=== PATIENT | female | born 1955 | race Caucasian/White ===

== ENCOUNTER → 2024-09-17 10:06 | Outpatient (REF) | payer MEDICARE, OTHER, SELFPAY | LOC: HWRAD 10:06 | PROVIDERS: ATTENDING PHYSICIAN Family Medicine | DX: Z85.850 Personal history of malignant neoplasm of thyroid (principal); E89.0 Postprocedural hypothyroidism | CPT/HCPCS: 76536 ==

== ENCOUNTER 2025-01-27 12:18 | Emergency (ER) | payer MEDICARE, OTHER, SELFPAY ==
[2025-01-27 12:30] VITALS: BP 143/88
[2025-01-27 13:00] LABS: % Basophils 0.5 % (0-2); % Eosinophils 0.4 % (0-6); % Immature Granulocytes 0.1 % (0-0.5); % Lymphocytes 40.2 % (20.5-51.1); % Monocytes 9.2 % (1.7-9.3); % Neutrophils 49.6 % (42.2-75.2); Absolute Monocytes 0.7 10^3/uL (0.1-0.6); Absolute Neutrophils 3.7 10^3/uL (1.4-6.5); Hematocrit 40.2 % (37.0-47.0); Hemoglobin 13.5 g/dL (12.0-16.0); Mean Corp Hgb Conc. 33.6 g/dL (33.0-37.0); Mean Corpuscular Hgb 28.8 pg (27.0-31.0); Mean Corpuscular Volume 85.7 fL (81.0-99.0); Mean Platelet Volume 9.3 fL (7.4-10.4); Nucleated Red Blood Cells % 0 %; Platelet Count 257 10^3/uL (130-400); Red Blood Cell Count 4.69 10^6/uL (4.20-5.40); Red Cell Dist. Width 13.9 % (11.5-14.5); White Blood Cell Count 7.4 10^3/uL (4.8-10.8)
[2025-01-27 13:10] LABS: ALT (SGPT) 22 U/L (0-35); AST (SGOT) 50 U/L (14-36); Alkaline Phosphatase 92 U/L (38-126); Blood Urea Nitrogen 17 mg/dl (7-17); Calcium 9.6 mg/dl (8.4-10.2); Carbon Dioxide 24 mmol/L (22-30); Chloride 106 mmol/L (98-107); Glucose 97 mg/dl (70-99); Sodium 138 mmol/L (135-145); Total Bilirubin 0.4 mg/dl (0.2-1.3); Total Protein 6.8 g/dl (6.3-8.2); eGFR > 60.00
[2025-01-27 13:21] LABS: Troponin I < 0.012 ng/ml
[2025-01-27 13:41] LABS: TSH Reflex To Free T4 0.11 uIU/ml (0.47-4.68)
[2025-01-27 14:10] LABS: Free T4 2.15 ng/dl (0.78-2.19)
[2025-01-27 14:44] VITALS: BP 153/86
--- NOTE | 2025-01-27 15:39 | ED.GENMED ---
History of Present Illness
General
Chief Complaint: Chest Pain
Time Seen by Provider: 01/27/25 15:21
History of Present Illness
History of Present Illness:
TIME OF INITIAL ENCOUNTER: 3:45 PM
HPI: Patient presents with chest discomfort. This started yesterday. It is not related to exertion. She does not have any shortness of breath. She has some associated vague lightheadedness but states she has been drinking plenty of fluid�she
states that she does not feel dehydrated. She was not diaphoretic. She was also concerned because she had blood pressure readings with systolics of around 160 today with no prior history of high blood pressure. She does have a history of thyroid
cancer with thyroidectomy and is on levothyroxine. She thinks she had a stress test about 7 years ago or so.
EXAM:
GENERAL: Well appearing in no distress
HEENT: Moist oral mucosa
CARDIOVASCULAR: No murmurs, mildly bradycardic heart rate, regular rhythm, markedly reproducible anterior chest wall tenderness
PULMONARY: No respiratory distress, breath sounds are clear and equal
ABDOMEN: Soft with no peritoneal signs, no tenderness
NEUROLOGIC: Excellent strength all extremities, no coordination deficits
PSYCHIATRIC: Appropriate mental status, normal insight and judgement
EXTREMITIES: Nontender, no edema, moves all extremities equally
SKIN: No rash, no lesions
NUMBER AND COMPLEXITY OF PROBLEMS ADDRESSED AT THE ENCOUNTER
� Chronic conditions affecting care: GERD, thyroid cancer, anxiety/depression
� Acute Exacerbation and/or Progression of Chronic Illness: This is an acute problem
� Differential Diagnosis includes: Chest wall pain most likely given the rather tenderness to the anterior chest wall, GERD, ACS less likely
AMOUNT AND/OR COMPLEXITY OF DATA TO BE REVIEWED AND ANALYZED
� I performed an independent evaluation of and my interpretation is:
EKG: Sinus 55, leftward axis deviation, no acute ST abnormality
CT:
X-rays:
Laboratory Studies: CBC normal, chemistries unremarkable, troponin less than 0.012, TSH low but free T4 is normal
Other:
� Review of other/old records: I reviewed records, the patient had a relatively unremarkable exercise stress test in 2019
� Clinical information was obtained by an independent historian: None needed
� Prescriptions/Medications Considered but not given: I offered and considered IV fluids over the patient ultimately declined. Also considered starting antihypertensives however the patient was never told about high blood
pressure readings that were high in the past and this is the only day that she noted high blood pressure readings therefore we will hold off on BP meds
� Further testing considered but not performed: Considered x-ray but breath sounds are clear and equal
RISK OF COMPLICATIONS AND/OR MORBIDITY OR MORTALITY OF PATIENT MANAGEMENT
� Social determinants of health affecting care: Lives at home
� Discussion with other providers:
� Escalation of care including admission/observation vs risk of discharge considered: The patient has markedly reproducible anterior chest wall pain with about 24 hours of symptoms that were not exertional. She had no shortness
of breath. She has minimal symptoms currently. She does report lightheadedness but feels well-hydrated. She has been seen by [facility] cardiology in the past�gave her chest pain hotline instructions.
ANY OTHER UPDATES:
Past History
Past History
ED Past Medical History: GERD, Psychiatric, Other and Other
ED Past Surgical History: Cholecystectomy and Other
Social History
Tobacco: Non-smoker
Alcohol: None
Drug: None
Personal:
Living: alone
Phy Exam
Physical Exam
Physical Exam:
See HPI
Scores
Heart Score for Chest Pain Patients
STEMI patient?: Not applicable
Course
Orders/Labs/Results
Orders:
Orders
01/27/25 12:20
ECG [Electrocardiogram (*1)] Urgent
Reason for Study: Chest Pain
EKG- Treatment ONCE
01/27/25 12:43
Complete Blood Count/With Diff Urgent
Comprehensive Metabolic Panel Urgent
Free T4 Urgent
TSH Reflex To Free T4 Urgent
Troponin I Urgent
Abnormal Lab Results
01/27/25
12:43
Absolute Monos (auto) 0.7 H 10^3/uL
(0.1-0.6)
AST 50 H U/L
(14-36)
TSH (Reflex) 0.11 L uIU/ml
(0.47-4.68)
01/27/25 12:43
01/27/25 12:43
Vital Signs
Initial and Last Documented VS:
Initial Vital Signs
Temp Pulse Resp BP Pulse Ox
36.9 C 62 18 143/88 97
01/27/25 12:30 01/27/25 12:30 01/27/25 12:30 01/27/25 12:30 01/27/25 12:30
Last Documented Vital Signs
Temp Pulse Resp BP Pulse Ox
36.9 C 65 18 153/80 100
01/27/25 12:30 01/27/25 14:44 01/27/25 14:44 01/27/25 15:44 01/27/25 15:45
*Critical Care Note
Total Time (30-74mins, 75-104mins- exclusive of procedures): Not Applicable
ED Attending Note
-
Portions of this chart may have been created with voice recognition software.� Occasional wrong word or��sound alike� substitutions may have occurred due to the inherent limitations of voice recognition software.
Discharge Plan
Departure
Patient Disposition: Home (Routine Discharge)
Date of Disposition: 01/27/25
Time of Disposition: 15:54
Patient with high blood pressure during this ER visit?: Yes
Discharge Problem:
Chest pain
Instructions: Chest Pain CBC Follow Up, BLOOD PRESSURE
Prescriptions:
No Action
aspirin 81 MG tablet,delayed release (DR/EC)
81 mg PO DAILY
naproxen [Naprosyn] 500 MG tablet
500 mg PO Daily PRN (Reason: Pain)
levothyroxine 137 MCG tablet
137 mcg PO DAILY
folic acid 1 MG tablet
1 mg PO DAILY
multivitamin [One Daily Multivitamin] 1 EACH powder in packet
1 ea PO DAILY
Referrals:
Lokesh Rai MD [Active] - Follow up in 2-3 days
NONE,* [Family Provider] -
Activity Restrictions/Additional Instructions:
Your EKG and cardiac blood work are both unremarkable. I reviewed the records, in the past you have had an exercise stress test read by [facility] cardiology�I have given you the contact information for one of the physicians in that group,
Cecelia. Somebody from their office should be calling you to arrange close follow-up. If you do not hear from them, call their office. Return here if worse or other concerns. I also recommend follow-up with your primary care doctor.
Interventions
Interventions:
*Risk Screen - Suicide Last Done: 01/27/25 12:30
*General Assessment Last Done: 01/27/25 12:30
*Neglect/Abuse Screening Last Done: 01/27/25 12:30
ED- Fall Risk Assessment Last Done: 01/27/25 15:23
ED- Cardiac Assessment Last Done: 01/27/25 15:23
Discharge Date and Time
Print Language: SPANISH
[2025-01-27 15:44] VITALS: BP 153/80
== END 2025-01-27 16:01 | disposition home or self-care (01) ==
LOC: EMR 12:18
PROVIDERS: Student in an Organized Health Care Education/Training Program; EMERGENCY PHYSICIAN Emergency Medicine
DX: R07.89 Other chest pain (principal); K21.9 Gastro-esophageal reflux disease without esophagitis; Z79.890 Hormone replacement therapy; Z85.850 Personal history of malignant neoplasm of thyroid; Z90.49 Acquired absence of other specified parts of digestive tract
CPT/HCPCS: 99283; 80053; 84439; 84443; 84484; 85025; 93005

== ENCOUNTER → 2025-02-10 09:26 | Outpatient (REF) | payer MEDICARE, OTHER, SELFPAY | LOC: RCS 09:26 | PROVIDERS: ATTENDING PHYSICIAN Internal Medicine Cardiovascular Disease; FAMILY PHYSICIAN Family Medicine | DX: R00.2 Palpitations (principal); R07.9 Chest pain, unspecified | CPT/HCPCS: 93017 ==

== ENCOUNTER → 2025-02-23 09:05 | Outpatient (REF) | payer MEDICARE, OTHER, SELFPAY | LOC: RCS 09:05 | PROVIDERS: ATTENDING PHYSICIAN Internal Medicine Cardiovascular Disease; FAMILY PHYSICIAN Family Medicine | DX: R00.2 Palpitations (principal); R07.9 Chest pain, unspecified | CPT/HCPCS: 93225; 93226; 93306 ==

== ENCOUNTER → 2025-02-25 09:40 | Outpatient (REF) | payer MEDICARE, OTHER, SELFPAY ==
[2025-02-25 11:20] LABS: Blood Urea Nitrogen 20 mg/dl (7-17); Calcium 9.6 mg/dl (8.4-10.2); Carbon Dioxide 28 mmol/L (22-30); Chloride 107 mmol/L (98-107); Glucose 94 mg/dl (70-99); Potassium 4.3 mmol/L (3.5-5.1); Sodium 141 mmol/L (135-145); eGFR > 60.00
== END ==
LOC: REG 09:40
PROVIDERS: ATTENDING PHYSICIAN Internal Medicine Cardiovascular Disease
DX: R00.2 Palpitations (principal); E78.2 Mixed hyperlipidemia
CPT/HCPCS: 36415; 80048

== ENCOUNTER 2025-10-28 13:59 | Emergency (ER) | payer MEDICARE, OTHER, SELFPAY ==
[2025-10-28 14:03] VITALS: BP 150/96
--- NOTE | 2025-10-28 14:57 | ED.GENMED ---
History of Present Illness
<Promise Kim PA-C - Last Filed: 10/28/25 22:54>
General
Chief Complaint: Breathing Problem
Source: patient
Exam Limitations: none
Time Seen by Provider: 10/28/25 14:11
Nursing documentation reviewed up to this point in time: agreed with
History of Present Illness
History of Present Illness:
Patient is a 70-year-old female with history of hypothyroid who presents to the emergency department with worsening pain/swelling of left ear as well as shortness of breath. She states that 12 days ago she began with pain and redness of her left
ear. She was seen by an ENT, Dr. Lira on 10/18/2025 and started on a course of oral clindamycin. Symptoms have progressively worsened despite clindamycin and during her follow-up with ENT yesterday her antibiotic was switched to Levaquin based on
culture results. This morning, patient states she has worsening pain in her left ear and left preauricular area. She also describes mild shortness of breath and is concerned of the infection is spreading to her lungs. She has had a mild dry cough
throughout the morning. She denies any exertional component to shortness of breath. No exertional chest pain. She denies any fever. No productive cough or hemoptysis.
Patient is scheduled to follow-up with the ENT physician on Saturday. She is also using a topical clobetasol ointment to ear.
Patient denies any known history of diabetes. She was recently swimming in an indoor pool prior to developing initial symptoms of left ear.
Past History
<Promise Kim PA-C - Last Filed: 10/28/25 22:54>
Past History
ED Past Medical History: GERD, Psychiatric, Other and Other
ED Past Surgical History: Cholecystectomy and Other
Social History
Tobacco: Non-smoker
Alcohol: None
Drug: None
Personal:
Living: alone
Review of Systems
<Promise Kim PA-C - Last Filed: 10/28/25 22:54>
Review of Systems
Allergies reviewed?: Yes
All Other Systems: ROS reviewed and negative except as documented in HPI and ROS
Phy Exam
<Promise Kim PA-C - Last Filed: 10/28/25 22:54>
Physical Exam
Physical Exam:
Vitals: Hypertensive, otherwise vital signs stable. Afebrile
General: Patient is well appearing, no acute distress
Skin: Warm and dry, no rashes or lesions
Head: Normocephalic, atraumatic
Eyes: Sclera nonicteric. EOMs intact. No nystagmus.
Ears: Left auricle erythematous and edematous without protrusion. Significant edema of left external auditory canal with some clear drainage. Unable to visualize TM. Tenderness of right preauricular area without any significant erythema. No
mastoid tenderness.
Throat: Protecting airway
Neck: Normal ROM, no cervical spine tenderness, no meningismus. No erythema or tenderness extending down neck
Cardiac: Regular rate and rhythm, no murmurs.
Pulm: Normal respiratory effort. Lungs clear bilaterally
Abdomen: No abdominal tenderness.
Extremities: No evidence of cyanosis or edema
Neuro: AAOx3. Grossly intact.
Psychiatric: Normal affect.
Scores
<Promise Kim PA-C - Last Filed: 10/28/25 22:54>
Heart Failure Risk
Heart Failure Risk Score: Not Applicable
Course
<ELI Hilliard Last Filed: 10/28/25 22:54>
Orders/Labs/Results
Orders:
Orders
10/28/25 14:27
CT Temporal-iac W/ Iv Contrast Urgent
Comment:
Reason For Exam: Left ear pain
10/28/25 14:30
CR Chest - 2 Views Urgent
Comment:
Reason For Exam: SOB
10/28/25 14:50
COVID-19 Antigen Urgent
Source: Nasal Swab
Complete Blood Count/With Diff Urgent
Comprehensive Metabolic Panel Urgent
Influenza A+B Rapid Molecular Urgent
HERRERA Source: Nasal Swab
Specimen Description:
10/28/25 16:32
Ofloxacin [Ocuflox] See Dose Instructions OTIC NOW ONE
Abnormal Lab Results
10/28/25
14:50
Absolute Monos (auto) 0.8 H 10^3/uL
(0.1-0.6)
Monocytes % 10.5 H %
(1.7-9.3)
BUN 19 H mg/dl
(7-17)
AST 47 H U/L
(14-36)
10/28/25 14:50
10/28/25 14:50
Vital Signs
Initial and Last Documented VS:
Initial Vital Signs
Pulse Ox
99
10/28/25 14:00
Last Documented Vital Signs
Temp Pulse Resp BP Pulse Ox
98.2 F 58 16 148/95 98
10/28/25 16:00 10/28/25 16:00 10/28/25 16:00 10/28/25 16:00 10/28/25 16:00
<Estephania Zee, DO - Last Filed: 10/28/25 15:21>
Orders/Labs/Results
Orders:
Orders
10/28/25 14:27
CT Temporal-iac W/ Iv Contrast Urgent
Comment:
Reason For Exam: Left ear pain
10/28/25 14:30
CR Chest - 2 Views Urgent
Comment:
Reason For Exam: SOB
10/28/25 14:50
COVID-19 Antigen Urgent
Source: Nasal Swab
Complete Blood Count/With Diff Urgent
Comprehensive Metabolic Panel Urgent
Influenza A+B Rapid Molecular Urgent
HERRERA Source: Nasal Swab
Specimen Description:
10/28/25 16:32
Ofloxacin [Ocuflox] See Dose Instructions OTIC NOW ONE
Abnormal Lab Results
10/28/25
14:50
Absolute Monos (auto) 0.8 H 10^3/uL
(0.1-0.6)
Monocytes % 10.5 H %
(1.7-9.3)
BUN 19 H mg/dl
(7-17)
AST 47 H U/L
(14-36)
10/28/25 14:50
10/28/25 14:50
Vital Signs
Initial and Last Documented VS:
Initial Vital Signs
Pulse Ox
99
10/28/25 14:00
Last Documented Vital Signs
Temp Pulse Resp BP Pulse Ox
98.2 F 58 16 148/95 98
10/28/25 16:00 10/28/25 16:00 10/28/25 16:00 10/28/25 16:00 10/28/25 16:00
<Promise Kim PA-C - Last Filed: 10/28/25 22:54>
MDM/Problems Addressed
Differential Diagnosis Includes:
Not limited to: Otitis externa, cellulitis, mastoiditis, viral illness, pneumonia, bronchitis, etc.
MDM/Problems Addressed:
70-year-old female with persistent left ear pain/swelling now with shortness of breath today. Currently undergoing oral antibiotic treatment for suspected cellulitis/otitis externa of left ear. She completed one week of clindamycin however yesterday
was transitioned to levaquin under direction of ENT based on culture results.
Vitals stable. On exam, patient appears well and in no distress. Cardio/pulmonary assessment unremarkable. There is significant edema and erythema of left ear, as well as edema of external auditory canal with minimal drainage. Unable to clearly
visualize TM. Focal tenderness to pre auricular area without any notable erythema or mastoid tenderness.
Clinical picture consistent with likely otitis external. Given duration of symptoms and worsening pain despite antibiotics - will check CT scan to rule out mastoiditis/ other deep infection. Will check basic labs and chest x-ray.
Patient is in no respiratory distress however does appear quite anxious. Do not suspect undergoing cardio/ pulmonary process today. There may be a component of anxiety contributing to shortness of breath.
Update: labs unremarkable. No leukocytosis. Chest X-ray without acute findings. Viral studies negative. CT scan shows evidence of otitis externa of left ear without other acute abnormalities. There was a mass in the left maxillary sinus of unknown
etiology � discussed with patient and advised follow with ENT.
Patient is already on oral Levaquin as prescribed by ENT. Will add topical ofloxacin and advise her to keep follow ENT appt as scheduled for Saturday. Strict return precautions discussed. Patient comfortable with plan.
Chronic conditions affecting care:
N/A
Acute Exacerbation and/or Progression of Chronic Illness:
N/A
<Promise Kim PA-C - Last Filed: 10/28/25 22:54>
*Radiology
Radiology exam reviewed: radiology read reviewed
*Pulse Oximetry
SaO2: 100
Oxygen Mode of Delivery: Room air
Patient hypoxic: no
*EKG
Interpreted by ED Provider?: NA
*Medical Library Assistant Interpretation
Rate: Medical Library Assistant- N/A
*Critical Care Note
Total Time (30-74mins, 75-104mins- exclusive of procedures): Not Applicable
ED Attending Note
<Promise Kim PA-C - Last Filed: 10/28/25 22:54>
-
Portions of this chart may have been created with voice recognition software.� Occasional wrong word or��sound alike� substitutions may have occurred due to the inherent limitations of voice recognition software.
<Estephania Zee DO - Last Filed: 10/28/25 15:21>
ED Attending Note
Patient seen and examined by attending physician: Yes
I performed the substantive portion of visit, reviewed & personally made and approve the management plan that is documented in note by myself or LEVI.: Yes
I performed a history and physical exam of patient and discussed management with resident, I reviewed resident's note and agree with documented findings and plan of care.: Yes
ED Attending Note:
70-year-old female presenting to the emergency department for left ear pain and difficulty breathing. Patient reports for the past 2 weeks she has been having left ear redness and pain externally. She was thought to have cellulitis to the ear, saw
ENT and was initially started on clindamycin. Notes that yesterday after taking culture, the doctor changed her to Levaquin. She has also been using clotrimazole cream for concern of possible fungal component. Notes some clear drainage to the
area. Reports symptoms started after she was swimming in the [place]. However, as a recent, started to feel short of breath and she was concerned that the infection was traveling to her lungs. Notes mild cough. Denies fever. Vital signs are
normal.
On exam, patient resting comfortably, no acute distress. Patient nontoxic. Unremarkable cardiac and pulmonary exam. No respiratory distress. On examination of the left external ear, swollen, erythematous, tender to palpation. No mastoid
tenderness. Generalized tenderness to the tragus. Limited visibility to the eardrum given patient's discomfort. No jus purulence from the ear. Suspect otitis externa with component of otitis media. However given persistence of symptoms, plan
for CT imaging of the orbit. Patient noting shortness of breath, however does note some anxiety as well. Stable vital signs. Will screen with chest x-ray imaging and laboratory analysis. Will likely add on topical agent to patient's antibiotic
regiment with continued ENT follow-up
Discharge Plan
Departure
Patient Disposition: Home (Routine Discharge)
Date of Disposition: 10/28/25
Time of Disposition: 16:33
Patient with high blood pressure during this ER visit?: Yes
Condition: Good
Discharge Problem:
Otitis externa of left ear
Instructions: Outer ear infection - ED (DC), BLOOD PRESSURE
Prescriptions:
New
ofloxacin 0.3 % drops
10 drp otic (ear) DAILY 7 Days Qty: 5 0RF
No Action
aspirin 81 MG tablet,delayed release (DR/EC)
81 mg PO DAILY
folic acid 1 MG tablet
1 mg PO DAILY
multivitamin [One Daily Multivitamin] 1 EACH powder in packet
1 ea PO DAILY
Referrals:
Jesse Lira MD [Non-Admitting Privileges, Otology] - Follow up in 2-3 days
Activity Restrictions/Additional Instructions:
RETURN TO THE EMERGENCY DEPARTMENT WITH ANY FEVER, WORSENING REDNESS, SWELLING, PAIN IN LEFT EAR, PAIN/REDNESS OF NECK, CHEST PAIN OR SHORTNESS OF BREATH, WORSENING IN CURRENT SYMPTOMS, OR ANY OTHER CONCERNS
- As discussed, your lab work and chest x-ray showed no acute abnormalities. The CT scan did reveal findings consistent with an external ear infection of your left ear. There was also an incidental mass noted in your left maxillary sinus�please
follow-up with ENT for further imaging as needed.
- Continue to take levofloxacin as prescribed. A prescription for ofloxacin eardrops have been sent to your pharmacy -please use as directed. You can continue to use topical clotrimazole ointment as prescribed by ENT.
- May take Tylenol and/or Motrin as needed for pain.
- Follow-up with your ENT physician as scheduled on Saturday for further evaluation
Monitor your symptoms closely and return to the emergency department with any acute worsening/new symptoms or any signs of worsening infection
Interventions
Interventions:
*Risk Screen - Suicide Last Done: 10/28/25 14:03
*General Assessment Last Done: 10/28/25 14:00
*Neglect/Abuse Screening Last Done: 10/28/25 14:03
*ED- Fall Risk Assessment Last Done: 10/28/25 14:00
*Nursing Disposition Last Done: 10/28/25 17:05
ED- Cardiac Assessment Last Done: 10/28/25 14:00
ED- Pulmonary Assessment Last Done: 10/28/25 14:00
Discharge Date and Time
Discharge Date/Time: 10/28/25 16:45
Print Language: YORUBA
[2025-10-28 15:08] LABS: Hematocrit 40.4 % (37.0-47.0); Hemoglobin 13.5 g/dL (12.0-16.0); Mean Corp Hgb Conc. 33.4 g/dL (33.0-37.0); Mean Corpuscular Volume 86.3 fL (81.0-99.0); Nucleated Red Blood Cells % 0 %; Platelet Count 283 10^3/uL (130-400); Red Cell Dist. Width 13.7 % (11.5-14.5)
[2025-10-28 15:23] LABS: ALT (SGPT) 19 U/L (0-35); AST (SGOT) 47 U/L (14-36); Albumin 4.0 g/dl (3.5-5.0); Alkaline Phosphatase 80 U/L (38-126); Blood Urea Nitrogen 19 mg/dl (7-17); Calcium 9.3 mg/dl (8.4-10.2); Carbon Dioxide 27 mmol/L (22-30); Chloride 105 mmol/L (98-107); Glucose 92 mg/dl (70-99); Potassium 3.9 mmol/L (3.5-5.1); Sodium 136 mmol/L (135-145); Total Protein 7.1 g/dl (6.3-8.2); eGFR > 60.00
[2025-10-28 15:24] LABS: COVID-19 Antigen Negative (Negative)
[2025-10-28 16:00] VITALS: BP 148/95
[2025-10-28] MEDS: OCUFLOX 1 DROP OTIC (16:44)
== END 2025-10-28 16:45 | disposition home or self-care (01) ==
LOC: EMR 13:59
PROVIDERS: Physician Assistant; EMERGENCY PHYSICIAN Student in an Organized Health Care Education/Training Program; FAMILY PHYSICIAN Internal Medicine Cardiovascular Disease
DX: H60.12 Cellulitis of left external ear (principal); E03.9 Hypothyroidism, unspecified; K21.9 Gastro-esophageal reflux disease without esophagitis; Z90.49 Acquired absence of other specified parts of digestive tract
CPT/HCPCS: 99284; 70481; 71046; 80053; 85025; 87502; 87811; Q9967